=== PATIENT | female | born 1950 | race Caucasian/White ===

== ENCOUNTER 2021-03-01 20:09 | Inpatient (IN) | payer MEDICARE, OTHER ==
[~2021-03-01] VITALS: Ht 160 cm; Wt 95.3 kg
[2021-03-01] MEDS ORDERED: NORT25CA5 PO (20:21)
[2021-03-01] MEDS ORDERED: MULT-594 PO (20:21)
[2021-03-01] MEDS ORDERED: LISI2.5T14 PO (20:21)
[2021-03-01] MEDS ORDERED: LEVO125T8 PO (20:21)
[2021-03-01] MEDS ORDERED: POTA10CA43 PO (20:21)
[2021-03-01] MEDS ORDERED: LAMO25TA10 PO ×2 (20:21)
[2021-03-01] MEDS ORDERED: OLAN10TA3 PO (20:21)
--- NOTE | 2021-03-01 20:22 | NUR ---
Medically cleared by Dr Bernard.
[2021-03-01] MEDS ORDERED: ASPI81TA31 PO (20:28)
[2021-03-01] MEDS ORDERED: ZOLP5TAB2 PO (20:31)
[2021-03-01] MEDS ORDERED: TOPI100T PO (20:31)
[2021-03-01] MEDS ORDERED: DIAZ2TAB PO (20:32)
--- NOTE | 2021-03-01 20:51 | NUR ---
Transfered to U via [facility] by [facility] ambulance team.
[2021-03-01 21:00] VITALS: BP 148/74
[2021-03-01] MEDS ORDERED: ACETAMINOPHEN 325 MG TABLET PO PRN (21:00)
[2021-03-01] MEDS ORDERED: MAG HYDROX/AL HYDROX/SIMETH 30 ML LIQUID UDC PO PRN (21:00)
[2021-03-01] MEDS ORDERED: BLOOD SUGAR DIAGNOSTIC 1 EACH STRIP VI ONE (21:00)
[2021-03-01] MEDS ORDERED: ACETAMINOPHEN 650 MG SUPP.RECT RC PRN (21:00)
[2021-03-01] MEDS ORDERED: MAGNESIUM HYDROXIDE 30 ML LIQUID UDC PO PRN (21:00)
--- NOTE | 2021-03-01 21:00 | NUR ---
GPS: ADMIT NOTES: Received Patient from the ER on a 72 hour hold for gravely disabled, a transfer from [facility]. patient brought by [facility] ambulance. Upon arival, patient confused and able to answer few questions. alert and oriented x1-2. patient had redness under left breast and abdominal fold. patient denies being suicidal, patient use fww and one person assist. unsteady of gait, patient given patients rights handbook. Bed alarm on for his safety.
[2021-03-01] MEDS: LORAZEPAM 1 MG TABLET PO PRN (21:40)
--- NOTE | 2021-03-01 21:41 | NUR ---
patient agitated. ativan 1 mg po given.
--- NOTE | 2021-03-01 22:41 | NUR ---
patient is calm now. ativan effective for anxiety.
[2021-03-02] MEDS: ZOLPIDEM 5 MG TABLET PO PRN ×2 (00:32→22:30)
--- NOTE | 2021-03-02 06:04 | NUR ---
GPS: Remain cooperative with meds and care. resting in bed comfortably. slept 1.30 hrs through the night.
[2021-03-02 07:06] LABS: BILIRUBIN,TOTAL 0.5 mg/dL (0.2-1.0); POTASSIUM 4.2 mmol/L (3.5-5.1)
[2021-03-02 07:30] VITALS: BP 142/72
[2021-03-02] MEDS ORDERED: POTASSIUM CHLORIDE 10 MEQ TAB.PRT.SR PO SCH (09:00)
[2021-03-02] MEDS: ASPIRIN 81 MG TAB.CHEW PO SCH (09:45)
[2021-03-02] MEDS: LISINOPRIL 5 MG TABLET PO SCH (09:45)
[2021-03-02] MEDS: NYSTATIN POWDER 15 GM BOTTLE TOP SCH ×2 (09:46→21:36)
[2021-03-02] MEDS: OLANZAPINE 5 MG TABLET PO SCH ×2 (10:00→16:51)
[2021-03-02] MEDS: LAMOTRIGINE 100 MG TABLET PO SCH ×2 (10:00→21:32)
[2021-03-02] MEDS: LEVOTHYROXINE SODIUM 125 MCG TABLET PO SCH (10:00)
[2021-03-02 15:04] VITALS: BP 133/67
[2021-03-02] MEDS: LORAZEPAM 1 MG TABLET PO PRN (16:51)
--- NOTE | 2021-03-02 18:22 | NUR ---
GPS: Pt is a/ox 1, confused and delusional. Pt fears that she is being threatened and attacked. Reoriented pt that she is safe and she begins to cooperate before getting agitated again. Pt has PRN ativan, administered 1 dose during shift. Pt is compliant with medications and takes them one by one whole. She is incontinent with diaper, had BM x 1 today in diaper. Cleaned and changed. Pt is currently calm sitting in geriatric chair in the dining room. No signs of acute distress.
[2021-03-02 20:00] VITALS: BP 126/92
[2021-03-02] MEDS: NORTRIPTYLINE HCL 25 MG CAPSULE PO SCH (21:32)
--- NOTE | 2021-03-03 02:26 | NUR ---
Received to care, up in margarita chair, clenching her arms together, with a slight tremor, noted. She remains selectively mute. Refused bedtime medications, nutrition, and hydration. Pts family and caregiver were both called. The caregiver called back, and was able to convince her to take her medications, and a small amount of water, by telephone. She was then assisted to bed. She refused to ambulate to the bathroom, so it required 3 staff to help her to bed, change her diaper, and provide hygiene. She remains resistive to care. She remains asleep, at this hour. No distress, noted. Addendum: 03/04/21 at 0227 by JASPAL ROCHA LVN ERROR/ WRONG DATE
--- NOTE | 2021-03-03 04:00 | NUR ---
Received to care, up in wheel chair, selectively mute. Medications given with much encouragement. Assisted to the bathroom and bed, by the GLUER MACHINE OPERATOR. She ambulated with assistance. As of now, she remains asleep. No distress noted.
--- NOTE | 2021-03-03 07:00 | NUR ---
Refused AM levothyroxine dose. Was resistive with AM care, requiring 3 staff to change diaper, and provide hygiene. Remains selectively mute.
[2021-03-03 07:30] VITALS: BP 151/82
[2021-03-03] MEDS: LEVOTHYROXINE SODIUM 125 MCG TABLET PO SCH (08:00)
[2021-03-03 08:56] LABS: THYROID STIMULATING HORMONE 0.634 mIU/mL (0.358-3.740)
[2021-03-03] MEDS: LISINOPRIL 5 MG TABLET PO SCH (09:00)
[2021-03-03] MEDS: NYSTATIN POWDER 15 GM BOTTLE TOP SCH ×2 (09:00→21:58)
[2021-03-03] MEDS: OLANZAPINE 5 MG TABLET PO SCH ×2 (09:00→16:42)
[2021-03-03] MEDS: ASPIRIN 81 MG TAB.CHEW PO SCH (09:00)
[2021-03-03] MEDS: LAMOTRIGINE 100 MG TABLET PO SCH ×2 (09:00→21:27)
--- NOTE | 2021-03-03 10:09 | NUR ---
Firearms Report: Keymodule Assembly Machine Tender completed and submitted a DOJ firearms report for 5150 grave disability certifications. A copy of report has been placed in patient chart.
--- NOTE | 2021-03-03 10:27 | NUR ---
patient is thought blocking, mute, appears internally preoccupied, and is refusing to participate in assessment with this abstract writer. she is noncooperative and is resistive with care. patient refused morning PO medications, patient is refusing to participate in education. patient refusing for staff to provide her care. patient noted with unsteady gait. she was assisted by 3 staff members into chair and placed closed to the nursing station for close observation and safety.
--- NOTE | 2021-03-03 10:50 | NUR ---
SW Family Contact SW left a voicemail for patient's Reid Xie ([phone]) requesting call back for collateral information and to discuss treatment and discharge plan. Waiting for a call back.
[2021-03-03 15:07] VITALS: BP 159/90
[2021-03-03] MEDS ORDERED: NEUTRA PHOS PACKET PO ONE (16:00)
--- NOTE | 2021-03-03 16:43 | NUR ---
patient continues to be noncooperative with nursing staff, resistive to care, and refusing all PO medications. Patient remains to be mute and refusing to participate in any conversation or communication with nursing staff. patient provided with education about importance of taking medication as prescribed but is refusing to participate.
[2021-03-03 20:05] VITALS: BP 136/88
[2021-03-03] MEDS: NORTRIPTYLINE HCL 25 MG CAPSULE PO SCH (21:31)
--- NOTE | 2021-03-04 02:27 | NUR ---
Received to care, up in margarita chair, clenching her arms together, with a slight tremor, noted. She remains selectively mute. Refused bedtime medications, nutrition, and hydration. Pts family and caregiver were both called. The caregiver called back, and was able to convince her to take her medications, and a small amount of water, by telephone. She was then assisted to bed. She refused to ambulate to the bathroom, so it required 3 staff to help her to bed, change her diaper, and provide hygiene. She remains resistive to care. She remains asleep, at this hour. No distress, noted.
[2021-03-04] MEDS: LEVOTHYROXINE SODIUM 125 MCG TABLET PO SCH (06:59)
[2021-03-04 07:30] VITALS: BP 146/75
--- NOTE | 2021-03-04 09:30 | NUR ---
GPS: PT ON BED, RECEIVED AWAKE AND DENIES ANY PAIN OR DISCOMFORT. PT NOTED SELECTIVELY MUTE, CONFUSED AND LOOKS DEPRESSED. PT NOT RESPONDING TO MY QUESTION. ABLE TO SPEAK WITH THE CAREGIVER AND SHE STATED THAT PT TALKS A LOT. SEEN PT BY PHYSICAL THERAPIST AND CONSULTING PROPERTY MANAGER AND UNABLE TO GET TRANSFERRED FROM BED TO DOMI-CHAIR PT IS MAX ASSIST AND KIND OF HEAVY. PT REFUSED MEDICATIONS AND NONCOMPLIANT TO CARE.
[2021-03-04] MEDS: ASPIRIN 81 MG TAB.CHEW PO SCH (09:40)
[2021-03-04] MEDS: LAMOTRIGINE 100 MG TABLET PO SCH ×2 (09:40→21:39)
[2021-03-04] MEDS: LISINOPRIL 5 MG TABLET PO SCH (09:41)
[2021-03-04] MEDS: NYSTATIN POWDER 15 GM BOTTLE TOP SCH ×2 (09:42→21:40)
[2021-03-04] MEDS: risperiDONE-M 0.5 MG TAB.RAPDIS PO SCH ×2 (10:26→17:42)
[2021-03-04 15:03] VITALS: BP 127/53
[2021-03-04 19:39] VITALS: BP 132/66
[2021-03-04] MEDS: NORTRIPTYLINE HCL 25 MG CAPSULE PO SCH (21:39)
--- NOTE | 2021-03-05 06:00 | NUR ---
Received to care, lying in bed. Remains selectively mute. Compliant with medications, and nursing care. She slept 7.25 hours, and is now awake. No distress, noted.
[2021-03-05] MEDS: LEVOTHYROXINE SODIUM 125 MCG TABLET PO SCH (07:13)
[2021-03-05 07:46] VITALS: BP 157/77
[2021-03-05] MEDS: risperiDONE-M 0.5 MG TAB.RAPDIS PO SCH ×2 (08:23→16:48)
[2021-03-05] MEDS: LAMOTRIGINE 100 MG TABLET PO SCH ×2 (08:23→22:04)
[2021-03-05] MEDS: ASPIRIN 81 MG TAB.CHEW PO SCH (08:23)
[2021-03-05] MEDS: LISINOPRIL 5 MG TABLET PO SCH (08:25)
[2021-03-05] MEDS: NYSTATIN POWDER 15 GM BOTTLE TOP SCH ×2 (08:26→22:05)
--- NOTE | 2021-03-05 10:37 | NUR ---
GPS: PT ON DOMI-CHAIR AFTER A PHYSICAL THERAPY SESSION. PT WALKED WITH ASISTANCE FROM PT. PT ATE WELL AFTER DRIVER OPERATOR FED THE PT. ABLE TO TOLERATE THE MEDICATION. CAREGIVER HOPE CALLED WITH PT AND FOR THE FIRST TIME HEARD THE PT VOICE ANSWERING BACK AND FORTH WITH SIMPLE YES AND NO. PT ABLE TO UNDERSTAND. SHE'S SELECTIVELY MUTE. PT CAREGIVER AND REQUESTING A CALL FROM PSYCHIATRIST.
--- NOTE | 2021-03-05 10:55 | NUR ---
JULIO Initial Discharge Note Pt currently resides at [address] [place] [address], [place] [address]. Pt is unable to communicate her discharge requests, however, the pt's elevated guard, Allie ([phone]) and pt's Reid stated that the pt can return home upon discharge if the pt's mental status has significantly improved. Further discharge plan will be discussed with pt's psychiatrist and family. JULIO will continue to work with pt, family, and MD to ensure a safe and proper discharge plan.
[2021-03-05 16:29] VITALS: BP 159/75
[2021-03-05 20:56] VITALS: BP 146/53
[2021-03-05] MEDS: NORTRIPTYLINE HCL 25 MG CAPSULE PO SCH (22:04)
[2021-03-06] MEDS: LEVOTHYROXINE SODIUM 125 MCG TABLET PO SCH (07:00)
[2021-03-06 07:30] VITALS: BP 122/62
[2021-03-06] MEDS: LISINOPRIL 5 MG TABLET PO SCH (08:47)
[2021-03-06] MEDS: LAMOTRIGINE 100 MG TABLET PO SCH ×2 (08:47→20:21)
[2021-03-06] MEDS: ASPIRIN 81 MG TAB.CHEW PO SCH (08:47)
[2021-03-06] MEDS: risperiDONE-M 0.5 MG TAB.RAPDIS PO SCH ×2 (08:47→16:53)
[2021-03-06] MEDS: NYSTATIN POWDER 15 GM BOTTLE TOP SCH ×2 (09:11→20:22)
--- NOTE | 2021-03-06 09:40 | NUR ---
GPS: PT RECEIVED TODAY ON DOMI-CHAIR FOR SAFETY. PT ABLE TO MAKE NEEDS KNOWN BY ASKING FOR A [place]/TISSUE. PT NOW TALKS AND CALM. PHYSICAL THERAPY DONE AND PT ABLE TO AMBULATE WITH FRONT WHEEL WALKER ALONG THE HALLWAY. NO AGITATION NOTED AT THIS TIME. PT FEEDS SELF. COOPERATIVE WITH CARE AND COMPLIANT WITH MEDS. TAKING WHOLE PILL NOW.
--- NOTE | 2021-03-06 15:35 | NUR ---
GPS: HEARING DONE TODAY AND PT HELD FOR 14DAY HOLD FOR GD.
[2021-03-06 16:00] VITALS: BP 124/49
--- NOTE | 2021-03-06 16:27 | NUR ---
GPS: NEUROLOGIST DR FELIX ORDERED CT SCAN FOR THE BRAIN TO RULE OUT [facility]IN[facility]'S DSE ON PT.
[2021-03-06 19:58] VITALS: BP 117/51
[2021-03-06] MEDS: NORTRIPTYLINE HCL 25 MG CAPSULE PO SCH (20:21)
[2021-03-07] MEDS: ZOLPIDEM 5 MG TABLET PO PRN ×2 (00:28→21:35)
[2021-03-07] MEDS: LEVOTHYROXINE SODIUM 125 MCG TABLET PO SCH (06:00)
--- NOTE | 2021-03-07 06:14 | NUR ---
PATIENT REMAINED STABLE DURING THE SHIFT. NO DISTRESS IDENTIFIED. COMPLIANT WITH MEDS. TOOK A SHOWER AT THE END OF THE SHIFT. NO BEHAVIORAL ISSUES IDENTIFIED. VERBALIZED NEEDS. NO PAIN NOTED. FREQUENT VISUAL CHECKS DONE. ALL NEEDS ATTENDED. WILL ENDORSE TO THE NEXT SHIFT FOR CONTINUITY OF CARE.
[2021-03-07 07:30] VITALS: BP 143/44
[2021-03-07 07:44] LABS: CREATININE 1.1 mg/dL (0.6-1.3); POTASSIUM 3.4 mmol/L (3.5-5.1)
[2021-03-07] MEDS: LAMOTRIGINE 100 MG TABLET PO SCH ×2 (08:32→20:13)
[2021-03-07] MEDS: LISINOPRIL 5 MG TABLET PO SCH (08:33)
[2021-03-07] MEDS: ASPIRIN 81 MG TAB.CHEW PO SCH (08:34)
[2021-03-07] MEDS: NYSTATIN POWDER 15 GM BOTTLE TOP SCH ×2 (08:36→20:14)
[2021-03-07] MEDS: risperiDONE-M 0.5 MG TAB.RAPDIS PO SCH ×2 (08:46→16:49)
[2021-03-07] MEDS ORDERED: POTASSIUM CHLORIDE 20 MEQ TAB.PRT.SR PO ONE (09:00)
--- NOTE | 2021-03-07 10:31 | NUR ---
WOUND CARE CONSULT: PT SEEN FOR RESOLVING RASH TO BREASTFOLDS AND ABDOMINAL/GROIN FOLDS WHICH WAS PRESENT ON ADMISSION. RECOMMEND CONTINUE PRESENT TREATMENT. DISCUSSED SKIN PROTECTION WITH NURSING STAFF. MD IN AGREEMENT WITH PLAN OF CARE.
--- NOTE | 2021-03-07 17:01 | NUR ---
Patient is received awake in her room. A/O X 2 - 3 to person, place, environment. Pt. affect is withdrawn, cooperative, quiet, guarded. Compliant with medication. Ambulates with assistance. Emotional support provided. Fall and safety precautions implemented.
[2021-03-07 17:03] VITALS: BP 108/57
[2021-03-07] MEDS: NORTRIPTYLINE HCL 25 MG CAPSULE PO SCH (20:12)
[2021-03-07] MEDS: LORAZEPAM 1 MG TABLET PO PRN (20:13)
[2021-03-07 20:21] VITALS: BP 118/44
[2021-03-08] MEDS: Z GUARD REMEDY PASTE 57 GM TUBE TOP PRN (03:52)
[2021-03-08] MEDS: LEVOTHYROXINE SODIUM 125 MCG TABLET PO SCH (06:03)
[2021-03-08 07:30] VITALS: BP 144/57
[2021-03-08] MEDS: ASPIRIN 81 MG TAB.CHEW PO SCH (08:39)
[2021-03-08] MEDS: LAMOTRIGINE 100 MG TABLET PO SCH ×2 (08:40→20:11)
[2021-03-08] MEDS: risperiDONE-M 0.5 MG TAB.RAPDIS PO SCH ×2 (08:40→17:22)
[2021-03-08] MEDS: LISINOPRIL 5 MG TABLET PO SCH (08:41)
[2021-03-08] MEDS: NYSTATIN POWDER 15 GM BOTTLE TOP SCH ×2 (08:42→20:12)
--- NOTE | 2021-03-08 12:58 | NUR ---
Gps/Driver Courier- Had been cooperative, pleasant with the staff providing her care. Stayed up in her margarita-chair during her lunch , encouraged continued verbalizations of her feelings and needs. Fungal rashes resolving redness.
[2021-03-08 16:00] VITALS: BP 129/45
[2021-03-08 20:00] VITALS: BP 123/58
[2021-03-08] MEDS: NORTRIPTYLINE HCL 25 MG CAPSULE PO SCH (20:11)
[2021-03-08] MEDS: LORAZEPAM 1 MG TABLET PO PRN (20:11)
[2021-03-08] MEDS: ZOLPIDEM 5 MG TABLET PO PRN (21:55)
[2021-03-09] MEDS: Z GUARD REMEDY PASTE 57 GM TUBE TOP PRN ×2 (01:39→20:12)
[2021-03-09] MEDS: LEVOTHYROXINE SODIUM 125 MCG TABLET PO SCH (05:39)
[2021-03-09 08:02] VITALS: BP 137/54
[2021-03-09] MEDS: risperiDONE-M 0.5 MG TAB.RAPDIS PO SCH ×2 (08:15→16:43)
[2021-03-09] MEDS: LAMOTRIGINE 100 MG TABLET PO SCH ×2 (08:17→20:10)
[2021-03-09] MEDS: ASPIRIN 81 MG TAB.CHEW PO SCH (08:17)
[2021-03-09] MEDS: LISINOPRIL 5 MG TABLET PO SCH (08:18)
[2021-03-09] MEDS: NYSTATIN POWDER 15 GM BOTTLE TOP SCH ×2 (08:23→20:11)
[2021-03-09 16:00] VITALS: BP 130/46
[2021-03-09 20:00] VITALS: BP 137/53
[2021-03-09] MEDS: NORTRIPTYLINE HCL 25 MG CAPSULE PO SCH (20:10)
[2021-03-09] MEDS: LORAZEPAM 1 MG TABLET PO PRN (20:10)
[2021-03-09] MEDS: ZOLPIDEM 5 MG TABLET PO PRN (21:48)
--- NOTE | 2021-03-10 05:14 | NUR ---
This patients behavior has been consistent over the last three nights. The patient is alert and oriented, has expectations of staff to do the ADLs for her such as fluffing her pillows, wiping her after toileting, placing her objects a certain way on her table ETC. Essentially, hyper managing the staff. The patient is very resistant to ambulating or standing and prefers to be pushed around in her recliner. This va underwriter was able to have long conversations with the patient. Insight into the behavior that brought patient to the hospital is poor. The patient can be pleasant, is medication compliant, and has shown no overt behavioral issues recently. Safety Stratiges in place, and continuing with the plan of care.
[2021-03-10] MEDS: LEVOTHYROXINE SODIUM 125 MCG TABLET PO SCH (05:31)
[2021-03-10 07:25] VITALS: BP 118/48
[2021-03-10] MEDS: ASPIRIN 81 MG TAB.CHEW PO SCH (08:55)
[2021-03-10] MEDS: risperiDONE-M 0.5 MG TAB.RAPDIS PO SCH ×2 (08:56→16:49)
[2021-03-10] MEDS: LAMOTRIGINE 100 MG TABLET PO SCH ×2 (08:56→20:01)
[2021-03-10] MEDS: LISINOPRIL 5 MG TABLET PO SCH (08:56)
[2021-03-10] MEDS: NYSTATIN POWDER 15 GM BOTTLE TOP SCH ×2 (08:58→20:02)
--- NOTE | 2021-03-10 11:18 | NUR ---
JULIO Family Contact Update SW contacted pt's Reid ([phone]) who confirmed that he and their director oncology Allie Oscar ([phone]) will pick out hand the pt on 03/11/21 at 11:30am to provide transportation back to their home [address], [place] [address].
[2021-03-10 15:53] VITALS: BP 121/47
[2021-03-10 20:00] VITALS: BP 110/53
[2021-03-10] MEDS: NORTRIPTYLINE HCL 25 MG CAPSULE PO SCH (20:01)
--- NOTE | 2021-03-10 21:09 | NUR ---
RECEIVED PATIENT IN THE HER ROOM IN BED. SHE IS NOTED AWAKE, A.O X 2. SHE IS CALM AND PLEASANT UPON APPROACHED. SHE IS ABLE TO VERBALIZED FEELINGS. PATIENT AWARE OF INCOMING DISCHARGED TO HOME TOMORROW MORNING. PATIENT DENIED SI/HI/VH/AH. SHE IS ABLE TO VERBALLY CFS. SHE IS REASSURED FOR HER SAFETY. SAFETY AND FALL PRECAUTION IN PLACE. V/S STABLE. SHE WAS GIVEN PO FLUIDS AND SNACKS. WILL CONTINUE TO MONITOR.
[2021-03-11] MEDS: LEVOTHYROXINE SODIUM 125 MCG TABLET PO SCH (06:29)
[2021-03-11 07:30] VITALS: BP 145/53
--- NOTE | 2021-03-11 07:36 | NUR ---
GPS: Nursing Notes: Abnormal Lab: Juan Harper NP informed of potassium level 3.4. Per CURTAIN CLEANER, to continue with her same medications at home, no need for medical prescription, to follow up with her primary care physician as soon as possible, continue with discharge plan, continue with treatment plan.
--- NOTE | 2021-03-11 08:25 | NUR ---
SW Discharge Note Pt will be discharged to home [address] [place] [address] with pts Reid Xie ([phone]) and ceo na Allie Oscar ([phone]). Pts and ceo na will pick pt up at 11:30am. Pt is aware and agreeable with discharge plans. Pt is alert and oriented x3. Pt denies any suicidal or homicidal ideation. Pt presents with calm mood and congruent affect. Pts Reid Xie ([phone]) and ceo na Allie Oscar ([phone]) are aware and agreeable with discharge plan. Pt will follow-up with Psychiatrist, Dr. Lofton ([phone]). Pt presents with calm mood and congruent affect.
[2021-03-11 08:29] VITALS: BP 145/53
[2021-03-11] MEDS: risperiDONE-M 0.5 MG TAB.RAPDIS PO SCH (08:29)
[2021-03-11] MEDS: ASPIRIN 81 MG TAB.CHEW PO SCH (08:29)
[2021-03-11] MEDS: LISINOPRIL 5 MG TABLET PO SCH (08:29)
[2021-03-11] MEDS: LAMOTRIGINE 100 MG TABLET PO SCH (08:29)
[2021-03-11] MEDS: NYSTATIN POWDER 15 GM BOTTLE TOP SCH (08:30)
--- NOTE | 2021-03-11 12:00 | NUR ---
GPS: Nursing Notes: Discharge Notes: Patient is awake and responding to her name, cooperative with nursing care, compliant with her medications, following staff directions, denies SI/HI, denies AH/VH, denies pain or discomfort, denies SOB. Patient discharge home [address], [place] [address] with pts Reid Xie ([phone]) and veneer jointer Allie Oscar ([phone]), took all her belongings with her, prescription and instructions given to patient, patient will follow up with Dr. Lofton (psychiatrist) and her own PCP as soon as possible.
== END 2021-03-11 12:00 | disposition home or self-care (01) | DRG 885 ==
LOC: ER 20:17 → GPS 20:36
PROVIDERS: ADMIT Psychiatry & Neurology Psychiatry; ATTEND Hospitalist
DX: F33.3 Major depressive disorder, recurrent, severe with psychotic symptoms (principal); N18.9 Chronic kidney disease, unspecified; G93.40 Encephalopathy, unspecified; I12.9 Hypertensive chronic kidney disease with stage 1 through stage 4 chronic kidney disease, or unspecified chronic kidney disease; E03.9 Hypothyroidism, unspecified; E78.5 Hyperlipidemia, unspecified; Z79.890 Hormone replacement therapy; F29 Unspecified psychosis not due to a substance or known physiological condition; B37.2 Candidiasis of skin and nail; G31.83 Neurocognitive disorder with Lewy bodies; F02.80 Dementia in other diseases classified elsewhere, unspecified severity, without behavioral disturbance, psychotic disturbance, mood disturbance, and anxiety
CPT/HCPCS: 36415; 70450; 84100; 84443; 97161; A4663

== ENCOUNTER 2022-07-19 12:55 | Inpatient (IN) | payer MEDICARE, OTHER ==
[~2022-07-19] VITALS: Ht 157.5 cm; Wt 101.2 kg
[~2022-07-19 12:55] MED LIST: ASPI81TA31 PO; LAMO25TA10 PO; LEVO125T8 PO; LISI2.5T14 PO; MULT-594 PO; POTA10CA43 PO; TOPI100T PO
--- NOTE | 2022-07-19 13:08 | NUR ---
Dr Sanchez at the bedside for MSE.
[2022-07-19] MEDS ORDERED: ZOLP5TAB8 PO (13:19)
[2022-07-19] MEDS ORDERED: OMEP20TA5 PO (13:19)
[2022-07-19] MEDS ORDERED: OLAN10TA3 PO (13:19)
[2022-07-19] MEDS ORDERED: BENA10TA74 PO (13:19)
[2022-07-19] MEDS ORDERED: RISP3TAB61 PO (13:19)
[2022-07-19] MEDS ORDERED: ATOR10TA PO (13:19)
[2022-07-19 13:40] LABS: *BILIRUBIN,URIN NEGATIVE (NEGATIVE); *BLOOD, URINE NEGATIVE (NEGATIVE); *CLARITY,URINE SLIGHTLY CLOUDY (CLEAR); *COLOR,URINE YELLOW (YELLOW); *KETONES,URINE 1+ (NEGATIVE); *UROBILINOGEN,URINE 0.2 E.U./dl (NORMAL); LEUKOCYTE ESTERASE ,URINE 1+ (NEGATIVE); NITRITE, URINE NEGATIVE (NEGATIVE); UGLUCOSE NEGATIVE (NEGATIVE)
[2022-07-19 13:46] LABS: MUCUS,URINE FEW /LPF (0-FEW); RBC,URINE 0-3 /HPF (0-3); SQUAMOUS EPITHELIAL CELL,UR FEW /HPF (NONE SEEN)
[2022-07-19 13:47] LABS: BACTERIA,URINE MANY /HPF (NONE SEEN)
[2022-07-19] MEDS ORDERED: NITROFURANTOIN/NITROFURAN MAC 100 MG CAPSULE PO ONE (14:27)
[2022-07-19] MEDS: NITROFURANTOIN/NITROFURAN MAC 100 MG CAPSULE PO SCH ×2 (14:28→21:19)
--- NOTE | 2022-07-19 14:50 | NUR ---
GPS: Nursing Notes: Admitting Notes: Patient is admitted to [facility] on 5150 DTS & DTO due to hearing voices of her caregiver telling her to "kill her ." Patient reports she is with thoughts of wanting to harm self/ today. Patient stated "I was going to take eternal life from him." Family unable to formulate a plan for pt's safe return home. On face to face assessment, patient is A/Ox3, cooperative with staff, denies SI stated "NO, I am not suicidal... I was homicidal.. I want it to hurt my .." Denies AH/VH, stated "I am not hearing voices... I was delusional.. I was in rage... I want to kill my .. He is my DPOA.." Unable to formulate a viable plan for self care. Patient is oriented to the unit, and admitting package with Patient's Rights Handbook was given to the patient. Dr. Cruz covering for Dr. Blue was notified. Also, Dr. Lara was notified of admission by the charge nurse, continue to monitor for safety.
[2022-07-19] MEDS ORDERED: MAGNESIUM HYDROXIDE 30 ML LIQUID UDC PO PRN (15:00)
[2022-07-19] MEDS ORDERED: ACETAMINOPHEN 325 MG TABLET PO PRN (15:00)
[2022-07-19] MEDS ORDERED: LORAZEPAM 0.5 MG TABLET PO PRN (15:00)
[2022-07-19] MEDS ORDERED: MAG HYDROX/AL HYDROX/SIMETH 30 ML LIQUID UDC PO PRN (15:00)
[2022-07-19 16:17] VITALS: BP 103/82
[2022-07-19 19:57] VITALS: BP 105/55
--- NOTE | 2022-07-19 21:00 | NUR ---
GPS: NURSING NOTES: PT IS ISOLATIVE WITH OTHER PATIENT NO SIGNS OF RESPIRATORY DISTRESS NOTED. PT WALKS WITH A FWW TOLERATING WELL TOOK MEDICATION ORDERED AND REQUESTING MEDICATION SHE TAKE AT NIGHT TOLD PATIENT SHE ARRIVED TODAY ON THE UNIT HER MEDICATION WILL START IN THE AM PT VERBALIZED UNDERSTANDING. PATIENT DENIES DTO, AND DTS. WILL CONTNUE PLAN OF CARE AND MONITOR FOR FALLS AND SAFETY.
[2022-07-19] MEDS: ZOLPIDEM 5 MG TABLET PO PRN (21:22)
[2022-07-20 08:19] VITALS: BP 118/52
[2022-07-20 08:39] LABS: CARBON DIOXIDE 25 mmol/L (21-32); CHLORIDE 105 mmol/L (98-107); CREATININE 1.4 mg/dL (0.6-1.3); GLUCOSE 101 mg/dL (74-106); POTASSIUM 3.9 mmol/L (3.5-5.1); UREA NITROGEN, BLOOD 35 mg/dL (7-18)
[2022-07-20] MEDS: NITROFURANTOIN/NITROFURAN MAC 100 MG CAPSULE PO SCH ×2 (08:57→20:07)
--- NOTE | 2022-07-20 11:28 | NUR ---
GPS 14 Day hold Certification: Patient place on 5210, certification given to patient and explained. Patient was informed that a certification review hearing will be held with in four days. Also, patient's right advocate will call to provide state tested nursing assistant on answering her questions. The court has been notified of this certification via [facility] portal on this day
--- NOTE | 2022-07-20 15:12 | NUR ---
GPS: Nursing Notes: Thought Disorder: Patient is awake and responding to her name, A/Ox3, isolative and withdrawn in her room, no interactions with peers, refusing to participate in therapeutic groups, continue to be compliant with her antibiotic for UTI, unable to formulate a viable plan for self care, unkempt appearance, when questioned by staff, stated "I am not suicidal..I was homicidal.. I was in rage..I wanted to hurt my ." No aggressive behavior noted, continue to monitor for safety, continue with treatment plan.
[2022-07-20 16:19] VITALS: BP 138/56
[2022-07-20 19:50] VITALS: BP 120/57
[2022-07-20] MEDS: ATORVASTATIN 10 MG TABLET PO SCH (20:08)
[2022-07-20] MEDS ORDERED: LAMOTRIGINE 25 MG TABLET PO SCH (21:00)
--- NOTE | 2022-07-21 02:07 | NUR ---
Received the patient in bed, at that time, the patient verbalized concerns about getting " The medications I need". A PRN for anxiety was given, as well as other medications ordered for 2100. A few hours later a PRN for sleep was offered, but patient refused. The patient denied SI, and denied ever having SI ,but did say " I am feeling bad. I am depressed. My Doctor only came in my room for 1 minute at the most. I do not like him". This keno writer provided reassurance, along with active listening, which was effective in calming the patient down and helping her to focus on other issues. The patient continued to engaged in conversation with this keno writer at length. Tangental speech and frequent ruminating on past hospital experiences, made it difficult to have any further meaningful dialog at that point. The patient minimized SI but did verbalized " I get thoughts that come and go. I feel like hurting my sometimes. I don't know why. I just do. That is really why I am here. Another reason is because my medications don't help me anymore.I got too used to them". Safety Stratiges are in place. Continuing to encourage verbalization from the patient regarding needs, concerns and feelings. Reassurance and education are ongoing.
[2022-07-21] MEDS: PANTOPRAZOLE SODIUM 40 MG TABLET.DR PO SCH (06:23)
[2022-07-21] MEDS: LEVOTHYROXINE SODIUM 100 MCG TABLET PO SCH (06:24)
[2022-07-21 08:07] VITALS: BP 125/70
[2022-07-21] MEDS: MULTIVITAMINS,THERAPEUTIC TABLET PO SCH (08:26)
[2022-07-21] MEDS: NITROFURANTOIN/NITROFURAN MAC 100 MG CAPSULE PO SCH ×2 (08:26→21:04)
[2022-07-21] MEDS: ASPIRIN 81 MG TAB.CHEW PO SCH (08:26)
[2022-07-21] MEDS ORDERED: Medication Not On Formulary EA (Multivitamins (Multivitamin) 1 EACH) PO SCH (09:00)
[2022-07-21] MEDS ORDERED: LEVOTHYROXINE SODIUM 125 MCG TABLET PO SCH (09:00)
[2022-07-21] MEDS: risperiDONE 2 MG TABLET PO SCH ×2 (09:05→17:14)
[2022-07-21] MEDS: LAMOTRIGINE 25 MG TABLET PO SCH ×2 (09:20→21:04)
--- NOTE | 2022-07-21 15:02 | NUR ---
JULIO Initial Discharge Note: Pt currently resides at home [address] [place] [address] with her , Reid ([phone]) and Allie mcadams ([phone]). JULIO left a voicemail for Reid and Allie to discuss pt's discharge plan. Pt stated she is open to a correction facility if she is not ready to return home. JULIO will continue to work with pt, family and MD to ensure a safe and proper discharge plan.
[2022-07-21 16:15] VITALS: BP 147/60
--- NOTE | 2022-07-21 16:49 | NUR ---
GPS: Nursing Notes: Thought Disorder: Patient is awake and responding to her name, cooperative with nursing care, showered today, compliant with her medications, stated "I do not feel like I want to hurt my today..The range went away.." Participated in therapeutic groups, minimal interactions with peers, unable to formulate a viable plan for self care, denies SI, isolative and withdrawn in her at times, continue to monitor for safety, continue with treatment plan.
[2022-07-21 20:00] VITALS: BP 127/53
[2022-07-21] MEDS: NORTRIPTYLINE HCL 25 MG CAPSULE PO SCH (21:04)
[2022-07-21] MEDS: ATORVASTATIN 10 MG TABLET PO SCH (21:04)
--- NOTE | 2022-07-22 05:55 | NUR ---
Patient was in the day room watching TV at the start of the shift. Alert and oriented. Medication compliant. Denies SI and active HI when asked and responded " I do not feel good really, but I am okay I guess". This data analyst report writer tried to engage in a meaningful conversation at that time ,but the patient was shut down, had poor eye contact and stared at the TV showing no willingness to elaborate. The patient did however, allow this data analyst report writer to assist her with a shower. This patient was less withdrawn physically this shift, then the previous night where she stayed in her room the whole time. Safety Stratiges in place and FWW when ambulating. Continuing with the plan of care at this time.
[2022-07-22] MEDS: PANTOPRAZOLE SODIUM 40 MG TABLET.DR PO SCH (06:10)
[2022-07-22] MEDS: LEVOTHYROXINE SODIUM 100 MCG TABLET PO SCH (06:10)
[2022-07-22 07:46] VITALS: BP 145/60
[2022-07-22] MEDS: risperiDONE 2 MG TABLET PO SCH ×2 (08:32→17:11)
[2022-07-22] MEDS: MULTIVITAMINS,THERAPEUTIC TABLET PO SCH (08:32)
[2022-07-22] MEDS: NITROFURANTOIN/NITROFURAN MAC 100 MG CAPSULE PO SCH ×2 (08:32→20:12)
[2022-07-22] MEDS: ASPIRIN 81 MG TAB.CHEW PO SCH (08:32)
[2022-07-22] MEDS: LAMOTRIGINE 25 MG TABLET PO SCH ×2 (08:33→20:12)
[2022-07-22 15:18] VITALS: BP 146/78
--- NOTE | 2022-07-22 18:20 | NUR ---
Received pt in room, calm on approach, cooperative with nursing care, compliant with her medications. Encourage pt to participate in therapeutic groups, minimal interactions with peers, unable to formulate a viable plan for self care, denies SI, isolative and withdrawn at times. Encourage to ventilate feelings. Reassurance provided. Verbally contracted for safety with this ticket writer. Continue to monitor for safety, continue with treatment plan.
[2022-07-22 19:55] VITALS: BP 138/64
[2022-07-22] MEDS: ATORVASTATIN 10 MG TABLET PO SCH (20:12)
[2022-07-22] MEDS: NORTRIPTYLINE HCL 25 MG CAPSULE PO SCH (20:12)
[2022-07-23] MEDS: PANTOPRAZOLE SODIUM 40 MG TABLET.DR PO SCH (06:16)
[2022-07-23] MEDS: LEVOTHYROXINE SODIUM 100 MCG TABLET PO SCH (06:16)
[2022-07-23 07:30] VITALS: BP 115/56
[2022-07-23] MEDS: risperiDONE 2 MG TABLET PO SCH ×2 (09:38→17:12)
[2022-07-23] MEDS: ASPIRIN 81 MG TAB.CHEW PO SCH (09:38)
[2022-07-23] MEDS: NITROFURANTOIN/NITROFURAN MAC 100 MG CAPSULE PO SCH ×2 (09:38→20:55)
[2022-07-23] MEDS: MULTIVITAMINS,THERAPEUTIC TABLET PO SCH (09:38)
[2022-07-23] MEDS: LAMOTRIGINE 25 MG TABLET PO SCH ×2 (09:39→20:55)
[2022-07-23 15:25] VITALS: BP 142/59
--- NOTE | 2022-07-23 16:54 | NUR ---
Gps/Manager Review- Participated in her group activities. Complaint with routine medications .. pleasant, guarded, redirectable .Encouraged adequate fluids . Interacts when engaged.
[2022-07-23 20:06] VITALS: BP 136/61
[2022-07-23] MEDS: NORTRIPTYLINE HCL 25 MG CAPSULE PO SCH (20:55)
[2022-07-23] MEDS: ATORVASTATIN 10 MG TABLET PO SCH (20:55)
[2022-07-24] MEDS: LEVOTHYROXINE SODIUM 100 MCG TABLET PO SCH (06:08)
[2022-07-24] MEDS: PANTOPRAZOLE SODIUM 40 MG TABLET.DR PO SCH (06:08)
[2022-07-24 08:09] VITALS: BP 141/48
[2022-07-24] MEDS: risperiDONE 2 MG TABLET PO SCH ×2 (09:11→17:04)
[2022-07-24] MEDS: ASPIRIN 81 MG TAB.CHEW PO SCH (09:11)
[2022-07-24] MEDS: LAMOTRIGINE 25 MG TABLET PO SCH ×2 (09:12→21:57)
[2022-07-24] MEDS: MULTIVITAMINS,THERAPEUTIC TABLET PO SCH (09:12)
[2022-07-24 15:50] VITALS: BP 149/59
[2022-07-24 19:30] VITALS: BP 160/65
[2022-07-24] MEDS: NORTRIPTYLINE HCL 25 MG CAPSULE PO SCH (21:57)
[2022-07-24] MEDS: ATORVASTATIN 10 MG TABLET PO SCH (21:57)
[2022-07-25] MEDS: LEVOTHYROXINE SODIUM 100 MCG TABLET PO SCH (06:41)
[2022-07-25] MEDS: PANTOPRAZOLE SODIUM 40 MG TABLET.DR PO SCH (06:41)
[2022-07-25 07:55] VITALS: BP 135/53
--- NOTE | 2022-07-25 08:08 | NUR ---
GPS Nursing notes: Patient lying in bed, awake, flat affect, denies pain or discomforts, will continue to monitor.
[2022-07-25] MEDS: MULTIVITAMINS,THERAPEUTIC TABLET PO SCH (08:17)
[2022-07-25] MEDS: ASPIRIN 81 MG TAB.CHEW PO SCH (08:17)
[2022-07-25] MEDS: risperiDONE 2 MG TABLET PO SCH ×2 (08:17→16:31)
[2022-07-25] MEDS: LAMOTRIGINE 25 MG TABLET PO SCH ×2 (08:18→20:24)
--- NOTE | 2022-07-25 13:02 | NUR ---
GPS: Nursing Notes: Thought Disorder: Patient is, A/Ox3, isolative and withdrawn in her room, none social with peers, patient, denies SI/HI/VH/AH, No aggressive behavior noted, continue to monitor for safety, continue with treatment plan. Fall and safety precaution implemented, emotional support provided.
[2022-07-25 16:31] VITALS: BP 141/50
[2022-07-25] MEDS: NORTRIPTYLINE HCL 25 MG CAPSULE PO SCH (20:22)
[2022-07-25] MEDS: ATORVASTATIN 10 MG TABLET PO SCH (20:22)
[2022-07-25 20:26] VITALS: BP 126/54
[2022-07-25] MEDS: ZOLPIDEM 5 MG TABLET PO PRN (23:53)
--- NOTE | 2022-07-26 04:54 | NUR ---
Pt is calm on approach, depressed ,flat affect. Pt is cooperative with nursing care and compliant with her medications. minimal interactions with peers, unable to formulate a viable plan for self care, denies SI, isolative and withdrawn at times. Encourage to ventilate feelings. Reassurance provided. Verbally contracted for safety with this sql report writer. Continue to monitor for safety, continue with treatment plan.
[2022-07-26] MEDS: PANTOPRAZOLE SODIUM 40 MG TABLET.DR PO SCH (06:20)
[2022-07-26] MEDS: LEVOTHYROXINE SODIUM 100 MCG TABLET PO SCH (06:20)
[2022-07-26 07:59] VITALS: BP 136/63
[2022-07-26 08:46] LABS: BILIRUBIN,TOTAL 0.4 mg/dL (0.2-1.0); POTASSIUM 4.3 mmol/L (3.5-5.1); TOTAL PROTEIN, SERUM 7.5 g/dL (6.4-8.2)
[2022-07-26] MEDS: MULTIVITAMINS,THERAPEUTIC TABLET PO SCH (08:48)
[2022-07-26] MEDS: LAMOTRIGINE 25 MG TABLET PO SCH ×2 (08:48→20:44)
[2022-07-26] MEDS: risperiDONE 2 MG TABLET PO SCH ×2 (08:48→16:26)
[2022-07-26] MEDS: ASPIRIN 81 MG TAB.CHEW PO SCH (08:48)
[2022-07-26 16:15] VITALS: BP 121/62
[2022-07-26 19:57] VITALS: BP 179/65
[2022-07-26] MEDS: NORTRIPTYLINE HCL 25 MG CAPSULE PO SCH (20:43)
[2022-07-26] MEDS: ATORVASTATIN 10 MG TABLET PO SCH (20:44)
[2022-07-27] MEDS: PANTOPRAZOLE SODIUM 40 MG TABLET.DR PO SCH (06:08)
[2022-07-27] MEDS: LEVOTHYROXINE SODIUM 100 MCG TABLET PO SCH (06:08)
[2022-07-27 07:56] VITALS: BP 126/56
[2022-07-27] MEDS: LAMOTRIGINE 25 MG TABLET PO SCH ×2 (08:53→21:01)
[2022-07-27] MEDS: ASPIRIN 81 MG TAB.CHEW PO SCH (08:53)
[2022-07-27] MEDS: MULTIVITAMINS,THERAPEUTIC TABLET PO SCH (08:53)
[2022-07-27] MEDS: risperiDONE 2 MG TABLET PO SCH ×2 (09:00→17:02)
--- NOTE | 2022-07-27 14:34 | NUR ---
JULIO Discharge Update: JULIO spoke with pt's , Reid ([phone]) and navy diver, Allie ([phone]) on Hope's speakerphone and discussed pt's discharge plan. Reid verbalized that he does not feel safe with pt returning home. Reid is agreeable to the pt being discharged to a alf facility. JULIO verbalized this movie writer will refer to facilities close to home and if pt is not accepted, JULIO will to local facilities. Reid is agreeable. JULIO will continue to update Reid with further discharge updates.
[2022-07-27 15:26] VITALS: BP 148/77
--- NOTE | 2022-07-27 15:45 | NUR ---
Received Patient is awake and responding to her name, A/Ox3, isolative and withdrawn in her room, with min. interactions with peers, , compliant with all medication, unable to formulate a viable plan for self care, unkempt appearance. denies any SI/HI No aggressive behavior noted, continue to monitor for safety, continue with treatment plan.
[2022-07-27 20:07] VITALS: BP 158/72
[2022-07-27] MEDS: NORTRIPTYLINE HCL 25 MG CAPSULE PO SCH (20:40)
[2022-07-27] MEDS: ATORVASTATIN 10 MG TABLET PO SCH (21:03)
[2022-07-28] MEDS ORDERED: LOPERAMIDE HCL 2 MG CAPSULE PO PRN (05:30)
--- NOTE | 2022-07-28 05:31 | NUR ---
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 Julien. New orders: Imodium 2mg qid po prn.
[2022-07-28] MEDS: LEVOTHYROXINE SODIUM 100 MCG TABLET PO SCH (06:08)
[2022-07-28] MEDS: PANTOPRAZOLE SODIUM 40 MG TABLET.DR PO SCH (06:08)
--- NOTE | 2022-07-28 07:15 | NUR ---
GPS Nursing Notes: Patient awake, in her bed, denies pain or discomforts, flat affect soft spoken, patient stated she had episodes of diarrhea yesterday, at this time no episodes of diarrhea, educated patient the importance to let nurse when she has an episodes, anti-diarrhea medication given this morning, emotional support provided, will continue to monitor.
[2022-07-28 08:02] VITALS: BP 108/57
[2022-07-28] MEDS: risperiDONE 2 MG TABLET PO SCH ×2 (08:54→16:52)
[2022-07-28] MEDS: MULTIVITAMINS,THERAPEUTIC TABLET PO SCH (08:54)
[2022-07-28] MEDS: ASPIRIN 81 MG TAB.CHEW PO SCH (08:54)
[2022-07-28] MEDS: LAMOTRIGINE 25 MG TABLET PO SCH ×2 (08:55→20:46)
[2022-07-28] MEDS: NUTRISOURCE FIBER 4 GM PACKET PO SCH ×2 (13:00→17:00)
--- NOTE | 2022-07-28 14:04 | NUR ---
GPS Nursing notes: Patient is isolative, withdrawn, staying in her room at this time, medication compliant, patient denies episodes of diarrhea at this time. Fall and safety precaution implemented, emotional support provided, will continue to monitor.
[2022-07-28 16:00] VITALS: BP 131/74
[2022-07-28 20:00] VITALS: BP 144/64
[2022-07-28] MEDS: NORTRIPTYLINE HCL 25 MG CAPSULE PO SCH (20:47)
[2022-07-28] MEDS: ATORVASTATIN 10 MG TABLET PO SCH (20:47)
[2022-07-29] MEDS: PANTOPRAZOLE SODIUM 40 MG TABLET.DR PO SCH (06:11)
[2022-07-29] MEDS: LEVOTHYROXINE SODIUM 100 MCG TABLET PO SCH (06:11)
--- NOTE | 2022-07-29 07:15 | NUR ---
GPS Nursing notes: Patient is quiet, calm, denies pain or discomforts, requested breakfast at this time. Encourage patient to participate with groups and activities and self grooming. Will continue to monitor.
[2022-07-29 07:49] VITALS: BP 121/57
[2022-07-29] MEDS: PROTEIN SUPPLEMENT (PROSTAT) 30 ML LIQUID PO SCH (08:00)
[2022-07-29] MEDS: ASPIRIN 81 MG TAB.CHEW PO SCH (08:26)
[2022-07-29] MEDS: risperiDONE 2 MG TABLET PO SCH ×2 (08:26→16:32)
[2022-07-29] MEDS: MULTIVITAMINS,THERAPEUTIC TABLET PO SCH (08:26)
[2022-07-29] MEDS: NUTRISOURCE FIBER 4 GM PACKET PO SCH ×3 (08:27→16:33)
[2022-07-29] MEDS: LAMOTRIGINE 25 MG TABLET PO SCH ×2 (08:27→20:22)
--- NOTE | 2022-07-29 10:08 | NUR ---
Firearms Report: Loft Worker Apprentice completed and submitted a DOJ firearms report for 5150 a danger to self and a danger to others certifications. A copy of report has been placed in patient chart.
--- NOTE | 2022-07-29 13:42 | NUR ---
GPS Nursing notes: Patient in her room, isolative, medication compliance, denies pain, discomforts, or denies SI/HI/VH/AH. Encourage to go to groups but refused at this time, also refused showered, fall and safety precaution implemented, emotional support provided. will continue to monitor.
[2022-07-29 15:15] VITALS: BP 122/51
[2022-07-29 19:47] VITALS: BP 155/79
[2022-07-29] MEDS: ATORVASTATIN 10 MG TABLET PO SCH (20:22)
[2022-07-29] MEDS: NORTRIPTYLINE HCL 25 MG CAPSULE PO SCH (20:22)
[2022-07-30] MEDS: PANTOPRAZOLE SODIUM 40 MG TABLET.DR PO SCH (06:08)
[2022-07-30] MEDS: LEVOTHYROXINE SODIUM 100 MCG TABLET PO SCH (06:08)
[2022-07-30 08:12] VITALS: BP 114/49
[2022-07-30] MEDS: risperiDONE 2 MG TABLET PO SCH ×2 (08:37→16:41)
[2022-07-30] MEDS: MULTIVITAMINS,THERAPEUTIC TABLET PO SCH (08:37)
[2022-07-30] MEDS: ASPIRIN 81 MG TAB.CHEW PO SCH (08:38)
[2022-07-30] MEDS: LAMOTRIGINE 25 MG TABLET PO SCH ×2 (08:39→20:09)
[2022-07-30] MEDS: PROTEIN SUPPLEMENT (PROSTAT) 30 ML LIQUID PO SCH (08:40)
[2022-07-30] MEDS: NUTRISOURCE FIBER 4 GM PACKET PO SCH ×3 (08:41→16:41)
--- NOTE | 2022-07-30 14:54 | NUR ---
Received patient sleeping in her room. Patient is A/O X 2 to person, place. Patient is cooperative with nursing care, compliant with medications, participating in group activities, depressed, labile. Patient ambulates with assistance device, requires minimal assistance with ADL. Active listening provided. Fall and safety precautions implemented.
[2022-07-30 19:46] VITALS: BP 164/73
[2022-07-30] MEDS: ATORVASTATIN 10 MG TABLET PO SCH (20:09)
[2022-07-30] MEDS: NORTRIPTYLINE HCL 25 MG CAPSULE PO SCH (20:09)
--- NOTE | 2022-07-31 04:04 | NUR ---
GPS NOTES: Patient received in the day area watching tv, she is A&0x3, she is pleasant when being talked to, She denies SI/VH/AH, as she verbalized "I'm Okay". She is cooperative w/ care and compliant. Safety measures kept in placed at tall times.
[2022-07-31] MEDS: LEVOTHYROXINE SODIUM 100 MCG TABLET PO SCH (06:07)
[2022-07-31] MEDS: PANTOPRAZOLE SODIUM 40 MG TABLET.DR PO SCH (06:07)
--- NOTE | 2022-07-31 07:15 | NUR ---
GPS nursing notes: patient lying in bed asleep with no S/S of distress noted.
[2022-07-31 07:29] VITALS: BP 131/57
[2022-07-31] MEDS: PROTEIN SUPPLEMENT (PROSTAT) 30 ML LIQUID PO SCH (08:00)
[2022-07-31] MEDS: MULTIVITAMINS,THERAPEUTIC TABLET PO SCH (08:40)
[2022-07-31] MEDS: risperiDONE 2 MG TABLET PO SCH ×2 (08:40→17:06)
[2022-07-31] MEDS: LAMOTRIGINE 25 MG TABLET PO SCH ×2 (08:42→21:40)
[2022-07-31] MEDS: ASPIRIN 81 MG TAB.CHEW PO SCH (08:42)
[2022-07-31] MEDS: NUTRISOURCE FIBER 4 GM PACKET PO SCH ×3 (08:45→17:06)
--- NOTE | 2022-07-31 14:26 | NUR ---
JULIO Discharge Update: JULIO spoke with Pts , Reid and die designer apprentice, Allie ([phone]) (this is the good number to call between 11 and 2:30PM) are aware and agreeable [place] the [place] [address]) [phone] via FACILITY TRANSPORTATION by non-emergency medical transport at 2PM on 08/01/22. JULIO spoke with Helen corley and Jessica at the facility who states they are ready to accept the patient. Pt is aware and agreeable with discharge plan.
[2022-07-31 15:49] VITALS: BP 127/63
[2022-07-31 20:04] VITALS: BP 150/75
[2022-07-31] MEDS: NORTRIPTYLINE HCL 25 MG CAPSULE PO SCH (21:39)
[2022-07-31] MEDS: ATORVASTATIN 10 MG TABLET PO SCH (21:39)
[2022-08-01] MEDS: LEVOTHYROXINE SODIUM 100 MCG TABLET PO SCH (06:44)
[2022-08-01] MEDS: PANTOPRAZOLE SODIUM 40 MG TABLET.DR PO SCH (06:44)
--- NOTE | 2022-08-01 07:03 | NUR ---
pt slept through the night, no distress, pt was compliant with medications.
[2022-08-01 08:06] VITALS: BP 135/53
[2022-08-01] MEDS: ASPIRIN 81 MG TAB.CHEW PO SCH (08:39)
[2022-08-01] MEDS: risperiDONE 2 MG TABLET PO SCH (08:39)
[2022-08-01] MEDS: MULTIVITAMINS,THERAPEUTIC TABLET PO SCH (08:39)
[2022-08-01] MEDS: LAMOTRIGINE 25 MG TABLET PO SCH (08:40)
[2022-08-01] MEDS: PROTEIN SUPPLEMENT (PROSTAT) 30 ML LIQUID PO SCH (08:41)
[2022-08-01] MEDS: NUTRISOURCE FIBER 4 GM PACKET PO SCH ×2 (08:42→12:39)
--- NOTE | 2022-08-01 14:07 | NUR ---
Received orders to discharge this patient to [facility] [address] [place] [phone] ([phone]) via Facility transportation by non emergency medical transport at 2PM. Patient is agreeable with discharge plans, and signed all discharge documentation. All valuables and belongings were returned to patient. Patient denies SI/HI Ah/VH, SOB, pain or any discomfort. Patient left the unit at 14:00. Reassurance given. Fall and safety precautions implemented.
== END 2022-08-01 14:00 | DRG 885 ==
LOC: ER 13:03 → GPS 14:19
PROVIDERS: ADMIT Psychiatry & Neurology Psychiatry; ATTEND Internal Medicine
DX: F31.5 Bipolar disorder, current episode depressed, severe, with psychotic features (principal); N17.0 Acute kidney failure with tubular necrosis; N18.30 Chronic kidney disease, stage 3 unspecified; D68.59 Other primary thrombophilia; N39.0 Urinary tract infection, site not specified; I12.9 Hypertensive chronic kidney disease with stage 1 through stage 4 chronic kidney disease, or unspecified chronic kidney disease; E66.01 Morbid (severe) obesity due to excess calories; Z68.39 Body mass index [BMI] 39.0-39.9, adult; G40.909 Epilepsy, unspecified, not intractable, without status epilepticus; Z96.642 Presence of left artificial hip joint; Z87.442 Personal history of urinary calculi; Z90.711 Acquired absence of uterus with remaining cervical stump; Z20.822 Contact with and (suspected) exposure to COVID-19; M47.816 Spondylosis without myelopathy or radiculopathy, lumbar region; Z87.19 Personal history of other diseases of the digestive system; E03.9 Hypothyroidism, unspecified; R73.03 Prediabetes; I13.10 Hypertensive heart and chronic kidney disease without heart failure, with stage 1 through stage 4 chronic kidney disease, or unspecified chronic kidney disease; F41.9 Anxiety disorder, unspecified; Z79.890 Hormone replacement therapy; Z79.899 Other long term (current) drug therapy; Z88.0 Allergy status to penicillin; Z86.79 Personal history of other diseases of the circulatory system; F20.2 Catatonic schizophrenia
CPT/HCPCS: 36415; A4663